=== PATIENT | male | born 1945 | race African-American/Black ===

== ENCOUNTER 2020-10-03 12:11 | Inpatient (IN) | payer OTHER ==
[~2020-10-03] VITALS: Ht 172.7 cm; Wt 76.6 kg
--- NOTE | ~2020-10-03 | O ---
[facility] [place] [address] OPERATIVE REPORT Name: JOESPH CHA Room #: 214-P ADM IN M.R.#: [id number] Admission: 10/03/20 Attend Phys: Parker Longoria MD Discharge: Date of : 45 Report #: [id number] THIS REPORT FOR: cc: Viviana Chiu MD,Viviana Olmos,Odin Cazares MD ~ CC: Parker Chiu DATE OF SERVICE: 10/09/2020 PREOPERATIVE DIAGNOSIS: Large bowel obstruction. POSTOPERATIVE DIAGNOSIS: Sigmoid volvulus. OPERATION: Sigmoidectomy with colostomy. SURGEON: Odin Olmos MD ANESTHESIA: General. ESTIMATED BLOOD LOSS: Minimal. SPECIMEN: Sigmoid colon. DESCRIPTION OF PROCEDURE: After informed consent was obtained, the patient was brought to the operating room and placed supine. SCDs were placed and working, preoperative antibiotics were administered, general anesthesia was induced. The abdomen was prepped and draped in the usual sterile fashion. Midline laparotomy incision was made from approximately 5 cm above the umbilicus down to the pubis. Fascia was incised and a self-retaining retractor was placed. I visualized the sigmoid colon. It was severely dilated. It was exteriorized. It was torsed on itself causing a volvulus. I then selected a spot approximately at the level of the distal descending colon. The sigmoid colon was then stapled off with a BETO blue load stapler. The white line of Toldt was incised and a colon mobilized medially. I then ligated the mesentery very close to the bowel. This was taken down to the pelvis. Approximately 10 cm above the rectosigmoid, the colon was then transected and the specimen was removed. I made an incision in the left lower quadrant to exteriorize the proximal colon. Abdomen was copiously irrigated. The fascia was reapproximated with 0 PDS in running fashion. Skin was closed with tawnya. The colostomy was then fashioned using 4-0 Vicryl in a Dali type fashion. A colostomy appliance was placed. Sterile dressings were applied. COMPLICATIONS: None. [facility] [address] [place] [address] OPERATIVE REPORT Name: JOESPH CHA Room #: 214-P [facility] IN ..#: [id number] Admission: 10/03/20 Attend Phys: Parker Longoria MD Discharge: Date of : 45 Report #: [id number] DISPOSITION: The patient was taken to recovery in satisfactory condition. By: 20 48 Odin Olmos MD /nt
[2020-10-03 12:12] VITALS: BP 173/86
[2020-10-03] MEDS ORDERED: VANCOMYCIN HCL125 MG PO (12:39)
[2020-10-03] MEDS ORDERED: LISINOPRIL40 MG PO (12:39)
[2020-10-03] MEDS ORDERED: METOPROLOL SUCC50 MG PO (12:39)
[2020-10-03] MEDS ORDERED: METRONIDAZOLE500 M4 PO (12:40)
[2020-10-03] MEDS ORDERED: SPIRONOLACTONE25 MG PO (12:40)
[2020-10-03] MEDS ORDERED: SPIRIVA18 MCG INH (12:41)
[2020-10-03] MEDS ORDERED: AMARYL2 MG PO (12:41)
[2020-10-03] MEDS ORDERED: CHLORTHALIDONE25 MG PO (12:41)
[2020-10-03] MEDS ORDERED: ELIQUIS5 MG PO (12:42)
[2020-10-03] MEDS ORDERED: K-DUR 20 MEQ T20 MEQ PO (12:42)
[2020-10-03 12:58] LABS: ABSOLUTE NEUTROPHILS 6.4 thou/uL (1.4-8.2); BASOPHILS 0.5 % (0.0-2.0); EOSINOPHILS 0.4 % (0.0-3.0); HEMATOCRIT 29.5 % (42.0-52.0); HEMOGLOBIN 9.5 gm/dL (14.0-18.0); LYMPHOCYTES 7.1 % (24.0-44.0); MCH 28.4 pg (26.0-34.0); MCHC 32.1 g/dL (28.0-37.0); MCV 88.4 fL (80.0-100.0); PLATELET COUNT 272 thou/uL (150-400); RBC 3.34 mil/uL (4.50-6.00); RDW 17.7 % (10.5-14.5); WBC 7.5 thou/uL (4.0-11.0)
[2020-10-03 13:10] LABS: URINE BILIRUBIN NEGATIVE (Negative); URINE BLOOD 1+ (Negative); URINE CLARITY CLEAR; URINE COLOR YELLOW; URINE GLUCOSE-RANDOM* 3+ (Negative); URINE KETONES NEGATIVE (Negative); URINE LEUKOCYTES-REFLEX NEGATIVE (Negative); URINE NITRITE-REFLEX NEGATIVE (Negative); URINE PROTEIN (DIPSTICK) 2+ (Negative); URINE SPECIFIC GRAVITY 1.015 (1.005-1.035); URINE UROBILINOGEN 0.2 E.U./dl (0.2-1.0)
[2020-10-03 13:17] LABS: CREATININE 3.7 mg/dL (0.7-1.3); DIRECT BILIRUBIN 0.1 mg/dL (<0.1-0.2); TOTAL BILIRUBIN 0.3 mg/dL (0.2-1.0); TOTAL PROTEIN 6.8 g/dL (6.4-8.2); TROPONIN-I 0.19 ng/mL (<0.06)
[2020-10-03 13:25] LABS: POTASSIUM 2.1 mmol/L (3.5-5.1)
[2020-10-03 13:28] LABS: CALCIUM 8.9 mg/dL (8.5-10.1)
[2020-10-03 13:31] LABS: CASTS None Seen /LPF (None Seen); SQUAMOUS 0-3 Few /LPF (0-3)
[2020-10-03 13:32] LABS: BACTERIA-REFLEX None Seen /HPF (None Seen); CRYSTALS None Seen /LPF (None Seen); URINE RBC 0-2 Rare /HPF (0-2); URINE WBC-REFLEX 0-5 Rare /HPF (0-5)
--- NOTE | 2020-10-03 13:57 | EKG ---
[facility] [place] [address] [place] [address] ELECTROCARDIOGRAM REPORT Name: JOESPH CHA Room #: [facility]#: [id number] Admission: 10/03/20 Attend Phys: Discharge: Date of : 45 Report #: [id number] THIS REPORT FOR: cc: Viviana Chiu MD, Karla L. MD Santiago, Patrick MD [facility] ~ THIS REPORT FOR: //name// [facility] ED Test Date: 2020-10-03 Test Time: 13:39:01 Pat Name: JOESPH CHA Department: Room: Gender: Tub Operator: [facility] 1945 Requested By: Donnell Lomas Order Number: [id number] MD: Ari Kirby Measurements Intervals Welches Rate: 59 P: 34 NE: 204 QRS: -19 QRSD: 148 T: 268 QT: 561 QTc: 556 Interpretive Statements Sinus rhythm Atrial premature complexes Right bundle branch block Baseline wander in lead(s) II No previous ECG available for comparison Electronically Signed On 10-03-2020 13:57:13 TENTERING MACHINE OFF BEARER by Ari Kirby [email or web address] <ELECTRONICALLY SIGNED> By: Ari Kirby MD, FACC 10/03/20 1357 1339 1339 Ari Kirby MD, FAC /EPI
--- NOTE | 2020-10-03 16:48 | NUR ---
THIS MEDICAL OFFICE ASST PAGES DR HEAD R/T CRITICAL GLUSOCE. SONIDO REPORTS HE HAS PLACED SOME ORDERS BUT GIVES T/O FOR 1000 ML NS WIDE OPEN ONCE
[2020-10-03 20:15] VITALS: BP 144/66
[2020-10-03 20:30] VITALS: BP 165/73
[2020-10-03 20:42] LABS: MAGNESIUM 1.7 mg/dL (1.8-2.4); PHOSPHORUS 1.9 mg/dL (2.5-4.9)
[2020-10-03 20:48] VITALS: BP 161/58
[2020-10-03 23:20] VITALS: BP 150/68
[2020-10-04 00:59] LABS: CALCIUM 8.8 mg/dL (8.5-10.1); CREATININE 3.3 mg/dL (0.7-1.3)
[2020-10-04 01:15] LABS: POTASSIUM 1.7 mmol/L (3.5-5.1)
--- NOTE | 2020-10-04 02:33 | NUR ---
PATIENT TRANSFERRED FROM ED AT APPROXIMATELY 2100. PATIENT UNABLE TO ANSWER ADMISSION QUESTIONS APPROPRIATELY SO CONTACTED TO HELP COMPLETE ADMISSION. PATIENT CONTINUES ON INSULIN DRIP WITH Q1H BG CHECKS.
[2020-10-04 04:45] VITALS: BP 139/79
[2020-10-04 06:06] LABS: HEMOGLOBIN 9.9 gm/dL (14.0-18.0); MCH 28.1 pg (26.0-34.0); MCHC 31.8 g/dL (28.0-37.0); MCV 88.3 fL (80.0-100.0); RBC 3.51 mil/uL (4.50-6.00); RDW 17.5 % (10.5-14.5)
[2020-10-04 06:19] LABS: CALCIUM 9.3 mg/dL (8.5-10.1)
[2020-10-04 06:38] LABS: POTASSIUM 2.2 mmol/L (3.5-5.1)
[2020-10-04 08:00] VITALS: BP 147/80
[2020-10-04 11:02] VITALS: BP 147/80
--- NOTE | 2020-10-04 11:03 | NUR ---
Chart reviewed and case discussed with the care team. Pt admitted from home where he lives with his . He was on service with [facility] prior to admission for RN,PT/OT services. He has rwalker and was getting around the house until increased weakness/falls this week. [facility] is aware of his admission and can accept him back on service at or. His is his primary contact. Will ask for therapy evals as appropriate. The pt is noted to be cdiff positive a month ago at [facility]. Will follow.
[2020-10-04 11:30] VITALS: BP 149/79
[2020-10-04 16:30] VITALS: BP 166/79
--- NOTE | 2020-10-04 17:29 | NUR ---
I have reviewed the documentation by LUIS BRIONES from 10/04/20 to 10/04/20 and I concur with it. JARVIS IRVIN, PT, DPT
[2020-10-04 20:45] VITALS: BP 152/77
[2020-10-05 00:30] VITALS: BP 153/55
[2020-10-05 01:06] LABS: GLYCOHEMOGLOBIN (HGB A1C) 9.5 % (4.8-5.6)
[2020-10-05 04:45] VITALS: BP 170/79
[2020-10-05 05:26] LABS: HEMATOCRIT 28.2 % (42.0-52.0); HEMOGLOBIN 9.2 gm/dL (14.0-18.0); MCH 28.9 pg (26.0-34.0); MCHC 32.6 g/dL (28.0-37.0); MCV 88.8 fL (80.0-100.0); RBC 3.18 mil/uL (4.50-6.00); RDW 17.7 % (10.5-14.5); WBC 7.1 thou/uL (4.0-11.0)
[2020-10-05 06:17] LABS: ALBUMIN 1.8 g/dL (3.4-5.0); CALCIUM 8.6 mg/dL (8.5-10.1); CREATININE 2.9 mg/dL (0.7-1.3); MAGNESIUM 1.7 mg/dL (1.8-2.4); PHOSPHORUS 3.2 mg/dL (2.5-4.9)
[2020-10-05 06:21] LABS: POTASSIUM 2.6 mmol/L (3.5-5.1)
[2020-10-05 07:40] VITALS: BP 160/56
--- NOTE | 2020-10-05 08:18 | NUR ---
PT WITH NG CLAMPED, CONDOM CATHETER WITH YELLOW URINE OUTPUT, FECAL MNGMENT SYSTEM WITH LIQUID BROWN STOOL, ASSISTS WITH TURNS IN BED, NO C/O PAIN OR N/V, NPO FOR COLONOSCOPY THIS AM, IV FLUIDS INFUSING L AC, WILL CON'T TO MONITOR PER PPOC.
--- NOTE | 2020-10-05 09:31 | HC ---
[facility] [place] [address] CONSULTATION Name: JOESPH CHA Room #: 214-P [facility] IN M.R.#: [id number] Admission: 10/03/20 Attend Phys: Parker Longoria MD Discharge: Date of : 45 Report #: [id number] THIS REPORT FOR: cc: Viviana Chiu MD, Karla L. MD Al-Mubaslat, Ahmad MD ~ DATE OF SERVICE: 10/04/2020 ENDOCRINE CONSULTATION NOTE CONSULTING PHYSICIAN: Dr. Longoria. REASON FOR CONSULTATION: Uncontrolled type 2 diabetes mellitus. HISTORY OF PRESENT ILLNESS: This is a 75-year-old male patient whose medical background is significant for hypertension, hyperlipidemia as well as newly diagnosed diabetes mellitus. The patient had a recent run in with Clostridium difficile for which he was hospitalized at [facility]. He has been experiencing progressive weakness, diminished appetite and weight loss since then. He presented to the Emergency Department primarily due to concerns over supposed hypertension. The patient notes that he was diagnosed with diabetes mellitus only a few months ago and that he has been placed on glimepiride monotherapy. When questioned about blood glucose monitoring at home, he replied that he does, but then could not specify any objective evaluation of his blood glucose pattern at home. Also, he is hypertensive and is maintained on lisinopril 40 mg daily, metoprolol 50 mg daily as well as spironolactone 25 mg daily. He believes that he is on some form of lipid-lowering therapy as well. REVIEW OF SYSTEMS: CONSTITUTIONAL: Fatigue, tiredness, weight loss, poor appetite, but no fever or chills. HEENT: Negative for sore throat, sinus pain or ear drainage. PULMONARY: Negative for shortness of breath, cough or hemoptysis. CARDIAC: Negative for chest pain, palpitations, syncope or presyncope. GASTROINTESTINAL: Noted for recent issues with Clostridium difficile and diarrhea, but no abdominal pain, nausea, vomiting. CARDIOLOGY: Negative for chest pain, palpitations, syncope or presyncope. Otherwise, review of systems noncontributory other than those mentioned in HPI. PAST MEDICAL HISTORY: 1. Hypertension. [facility] [address] [facility] [place] [address] CONSULTATION Name: JOESPH CHA Room #: 214-P [facility] IN ..#: [id number] Admission: 10/03/20 Attend Phys: Parker Longoria MD Discharge: Date of : 45 Report #: [id number] 2. Type 2 diabetes mellitus. 3. Recent Clostridium difficile. MEDICATIONS: Metoprolol 50 mg daily, lisinopril 40 mg daily, vancomycin 125 mg p.o. q.i.d., spironolactone 25 mg daily, Spiriva daily, glimepiride 2 mg daily, chlorthalidone 25 mg daily, Eliquis 5 mg b.i.d., KCl 20 mEq daily. ALLERGIES: HE IS ALLERGIC TO BACTRIM. FAMILY HISTORY: Noncontributory. SOCIAL HISTORY: Lives with his . Denies use of tobacco, alcohol or illicit drugs. PHYSICAL EXAMINATION: GENERAL: Pleasant -Gibraltarian elderly male patient who is not in apparent pain or distress. VITAL SIGNS: Blood pressure is 147/80 mmHg, heart rate is 66 beats per minute, respirations 16 per minute, temperature of 36.4 degrees Celsius. CONSTITUTIONAL: He is sitting upright in bed, appears lethargic, but not in pain or distress. HEENT: Anicteric sclerae. Intact extraocular motions. NECK: Supple, without JVD, carotid bruits or lymphadenopathy. I do not appreciate thyromegaly. CHEST: Noted for moderate entry bilaterally with scattered rales. No wheezes or crackles. HEART: Regular rate and rhythm. ABDOMEN: Soft, lax. No guarding. Active bowel sounds. EXTREMITIES: Lower extremity exam, trace ankle edema bilaterally. No skin breaks or ulcerations. NEUROLOGIC: Awake, alert and oriented to time, place and person, largely nonfocal. PSYCHIATRIC: Pleasant, interactive. Normal mood and affect. LABORATORY DATA: Blood glucose on arrival was over 500, then quickly went to as low as 59 mg/dL earlier this morning, most recently it is at 135 this morning and then 275 mg/dL before this dictation. Otherwise, sodium 155, potassium 2.6, chloride 119, CO2 of 21, anion gap 15, creatinine of 3.0, was 3.7 on arrival, AST 21, total bilirubin 0.3, calcium 9.3, phosphorus 1.9, magnesium 1.7, alkaline phosphatase 124, total protein 6.8, albumin 2.0. EGFR 25. Lactic acid 1.4. Troponin 0.19. White blood count 10, hemoglobin 9.9, hematocrit 31, platelets 289. ASSESSMENT AND PLAN: [facility] [address] [place] [address] CONSULTATION Name: JOESPH CHA Room #: 214-P [facility] IN M.R.#: [id number] Admission: 10/03/20 Attend Phys: Parker Longoria MD Discharge: Date of : 45 Report #: [id number] 1. Type 2 diabetes mellitus. As per the patient, this is a new diagnosis. I will obtain a hemoglobin A1c to get a better assessment of his overall level of control. It is not clear as to whether he had any meaningful responsiveness to glimepiride monotherapy. However, he was managed with IV insulin immediately on admission and demonstrated a quick responsiveness to it and has developed hypoglycemia several hours into it. At that time, that was discontinued, the patient was running an average insulin rate of 5 units per hour. At this point in time, I would like to initiate therapy with Lantus insulin 12 units daily starting now as well as a Humalog supplemental scale of moderate intensity. This would both give us the flexibility and ability to adjust his therapy according to changes going forward. Blood glucose monitoring will commence a.c. and at bedtime. 2. Renal insufficiency. I advanced and consistent with stage 4 kidney disease. I am hopeful that this is at least partially due to acute azotemic changes. Nephrology is following the patient closely. 3. Hypokalemia. The patient has severe hypokalemia that is currently being replaced aggressively. This is to be monitored and we will continue replacement as needed. 4. Hypertension. The patient's level of blood pressure control is adequate on the current regimen and he is to continue with the current regimen. I certainly appreciate this consultation by Dr. Longoria. <ELECTRONICALLY SIGNED> By: Lea Arguelles MD 10/05/20 0931 1127 0203 Lea Arugelles MD /nt
[2020-10-05 11:20] VITALS: BP 1060/85
--- NOTE | 2020-10-05 15:09 | NUR ---
GI LAB CALLED THEY ARE PENDING COVID RESULTS BUT STILL COMING UP TO GET HIM FRO PROCEDURE, AT BEDSIDE HE IS SLEEPING.
[2020-10-05 15:20] VITALS: BP 160/99
[2020-10-05 19:40] VITALS: BP 141/67
--- NOTE | 2020-10-05 19:48 | NUR ---
16:00 BACK ON UNIT FROM GI PROCEDURE. SLEEPY OVERALL BUT AROUSES TO CONVERSATION. WIDE AT BEDSIDE REPORT ON PROCEDURE PER EQUIPMENT OPERATOR INTERMODAL YARD-RYAN AT BEDSIDE PROVIDED WELL. DENIES ANY PAIN, WATCHING TV STABLE VS, NO CP, NO SOB. FECAL MANAGEMENT TUBE WAS CHANGED OUT IN THE GI LAB.
[2020-10-06 03:30] VITALS: BP 147/83
[2020-10-06 04:43] LABS: ALBUMIN 1.9 g/dL (3.4-5.0); CALCIUM 8.4 mg/dL (8.5-10.1); CREATININE 2.6 mg/dL (0.7-1.3); PHOSPHORUS 3.4 mg/dL (2.5-4.9)
[2020-10-06 05:01] LABS: POTASSIUM 2.7 mmol/L (3.5-5.1)
--- NOTE | 2020-10-06 08:27 | NUR ---
ASSESSMENTS CHARTED, MEDS CHARTED GIVEN. CRITICAL POTASSIUM THIS MORNING, IV MEDS ORDERED. PATIENT HAD PULLED OUT IV ACCESS DURING INTERIM, NO ACCESS COULD BE FOUND. WAITING FOR IV TEAM TO ARRIVE. PATIENT HAS BEEN NPO DURING SHIFT FOR POSSIBLE SURGERY TODAY FOR STRICTURE. FECAL MGMT SYSTEM IN PLACE AND ZAMORA IN PLACE. FALL PRECAUTIONS IN PLACE DURING SHIFT.
[2020-10-06 11:05] VITALS: BP 156/81
--- NOTE | 2020-10-06 13:16 | P ---
[facility] [place] [address] PROCEDURE REPORT Name: JOESPH CHA Room #: 214-P ADM IN M.R.#: [id number] Admission: 10/03/20 Attend Phys: Parker Longoria MD Discharge: Date of : 45 Report #: [id number] THIS REPORT FOR: cc: Viviana Chiu MD,Dano Brantley MD, MD ~ CC: Harjinder Chiu MD DATE OF SERVICE: 10/05/2020 PROCEDURE PERFORMED: Colonoscopy with decompression. HISTORY OF PRESENT ILLNESS: The patient is a 75-year-old male, who is a fairly poor historian, previous history of C. diff colitis, diarrhea for approximately 1 month. At that time at [facility], he was on Flagyl, later switched to vancomycin, but continues to have diarrhea. CT scan of the abdomen and pelvis on this admission shows findings suggesting a sigmoid colon stricture causing colonic obstruction with marked gaseous and stool distention of the colon proximal to this abrupt narrowing. A neoplastic etiology is consideration, not typical appearance of the sigmoid volvulus. A low density lesion in the right lobe of the liver concerning for hepatic metastasis. Multiple renal masses were also noted. The patient has never had a colonoscopy before. He was on a pureed diet; therefore, we placed a Dobbhoff to give him a prep last night. Plan is for colonoscopy. DESCRIPTION OF PROCEDURE: The risks and benefits of the procedure were explained to the patient and his , those risks including but not limited to bleeding, perforation and the risk of sedation. They understood these risks and gave informed consent. Propofol was given per anesthesia. Next, a digital rectal exam was initially performed, in which internal hemorrhoid was palpated, but otherwise normal. Next, using a standard Olympus colonoscope, the scope was placed in the patient's anus and advanced under direct vision into the transverse colon. There was a large amount of liquid stool throughout. The prep was poor throughout most of the colon. As I was advancing the scope through the sigmoid colon, at approximately 30 cm, there was a narrowing, no obvious stricture or mass lesion was noted. However, just beyond this was a significantly dilated sigmoid and descending colon consistent with likely a sigmoid volvulus. Large amount of liquid stool, very thick with mucus, was difficult to aspirate a lot of that way, but I was able to aspirate approximately 2 liters of liquid stool over the next 30 minutes. I was able to advance the scope what appears to be the transverse colon again. All these areas were massively dilated. There was no colitis, no mass lesions were noted. [address] [address] PROCEDURE REPORT Name: SEMAJJOESPH Room #: 214-P [facility] IN M.R.#: [id number] Admission: 10/03/20 Attend Phys: Parker Longoria MD Discharge: Date of : 45 Report #: [id number] Large amount of the area was covered with liquid stools as well, which did limit visualization. I spent a lot of time decompressing his abdomen, which was significantly improved after decompression. Once again looked at that area at 30 cm, again no obvious mass or polyp lesion was seen. This is most consistent with a sigmoid volvulus at 30 cm. No obvious diverticula were noted either. The rectal mucosa was normal. On retroflexion, internal hemorrhoid also noted. At this point, the scope was then withdrawn and the procedure terminated. The patient tolerated the procedure well. IMPRESSION: 1. Findings consistent with a sigmoid volvulus with a narrowing at 30 cm, no mass lesion was noted with significant dilation of the colon proximal to this with large amounts of liquid thick stool, aspirated approximately 2 liters away of liquid stool, also decompressed the colon significantly. 2. Internal hemorrhoids. RECOMMENDATIONS: We will consult Surgery for possible sigmoid resection. We will need to continue further workup for his liver lesion as well. Thank you for allowing me to participate in his care. <ELECTRONICALLY SIGNED> By: Dano Bourgeois MD 10/06/20 1316 1619 1127 Dano Bourgeois MD /nt
[2020-10-06 13:59] LABS: APTT 24.3 Seconds (24.5-32.8); PROTIME 10.6 Seconds (9.3-11.4)
[2020-10-06 16:45] VITALS: BP 141/74
[2020-10-06 19:20] VITALS: BP 129/67
--- NOTE | 2020-10-06 19:42 | NUR ---
ASSESSMENT CHARTED - MEDS PER JAN - K+ REPLACED ORDERED IV AND PO. ALEXANDR DIET PURREE/ CHOPPED AND NECTAR THICK LIQUIDS. ACCUCHECKS CHARTED - FECAL SYSTEM EXTERNAL CATH REMAIN INSITU. NO CO'S OF PAIN OR NAUSEA. PT HAD LIVER BIOPSY COMPLETED THIS AFTERNOON. SLEEPY POST PROCEDURE- WOKE UP FOR DINNER AND ATE WELL. INTO VISIT - SEEN BY SURGERY TODAY. NO CO'S AT THE PRESENT TIME. APPEARS TO BE COMFORTALBE.
[2020-10-07 03:30] VITALS: BP 145/75
[2020-10-07 04:43] LABS: ALBUMIN 1.7 g/dL (3.4-5.0); CALCIUM 8.4 mg/dL (8.5-10.1); CREATININE 2.7 mg/dL (0.7-1.3); PHOSPHORUS 3.4 mg/dL (2.5-4.9); POTASSIUM 3.1 mmol/L (3.5-5.1)
--- NOTE | 2020-10-07 05:41 | NUR ---
ASSESSMENTS CHARTED, MEDS CHARTED GIVEN. PATIENT RESTING IN BED DURING SHIFT. FECAL MGMT SYSTEM BALLOON REINFLATED, LEAKAGE. NEW COLLECTION BAG APPLIED. USING EXTERNAL ZAMORA WITH ONE BOUGHT OF LEAKAGE. PLAN OF CARE IS TO HAVE SURGERY EARLY NEXT WEEK.
[2020-10-07 08:28] VITALS: BP 147/81
[2020-10-07 11:44] VITALS: BP 150/87
[2020-10-07 15:50] LABS: ALBUMIN 1.8 g/dL (3.4-5.0); CREATININE 2.8 mg/dL (0.7-1.3); PHOSPHORUS 3.5 mg/dL (2.5-4.9); POTASSIUM 3.1 mmol/L (3.5-5.1)
[2020-10-07 16:57] VITALS: BP 165/90
--- NOTE | 2020-10-07 17:38 | NUR ---
ASSUMED CARE PT SHIFT CHANGE. ASSESSMENTS CHARTED.MEDS GIVEN PER JAN.PT ALERT AND ORIENTED X2, VSS. DENIES PAIN O2 SATS WNL ON 2L. FECAL TUBE REMAINS IN PLACE DRAINING APPROPRIATELY. ZAMORA REMAINS IN PLACE. PT REPOSITIONED TOLERATED. PLAN IS FOR SURGERY FRIDAY. FAMILY UPDATED AND AWARE. PT TOELRATING DIET VERY WELL. NO S/SX DIFFICULTY SWALLOWING/ASPIRATION. WILL CONT TO [facility] PT AND FOLLOW POC.
[2020-10-07 20:30] VITALS: BP 153/79
[2020-10-08] VITALS (8 sets, daily range): BP systolic 117–170; BP diastolic 70–97
--- NOTE | 2020-10-08 03:04 | NUR ---
ASSESSMENTS CHARTED, MEDS CHARTED GIVEN. RESTING IN BED DURING SHIFT. ON MAINTENANCE FLUIDS DURING SHIFT. BBB ON TELEMETRY. ON 2 LITERS NASAL CANNULA. TURNED DURING SHIFT. FECAL MANAGEMENT SYSTEM NEEDED REINFLATING AGAIN. PLAN OF CARE IS TO HAVE SURGERY ON FRIDAY. FALL PRECAUTIONS IN PLACE DURING SHIFT.
[2020-10-08 06:00] LABS: ALBUMIN 1.7 g/dL (3.4-5.0); CALCIUM 8.1 mg/dL (8.5-10.1); CREATININE 2.7 mg/dL (0.7-1.3); PHOSPHORUS 4.1 mg/dL (2.5-4.9)
[2020-10-08 06:06] LABS: POTASSIUM 2.8 mmol/L (3.5-5.1)
--- NOTE | 2020-10-08 19:35 | NUR ---
PT CARE ASSUMED AT 0700. ASSESSMENTS CHARTED. MEDICATION CHARTED. AYDE ZAMORA. FECAL MANAGEMENT SYSTEM. COLONIC STRICTURE; SURGERY IN AM. NPO; OTHERWISE MECH SOFT/ NECTAR THICK LIQUIDS. SINUS RHYTHM TO SINUS TACH.
[2020-10-09 03:58] LABS: ALBUMIN 1.8 g/dL (3.4-5.0); CALCIUM 8.6 mg/dL (8.5-10.1); CREATININE 2.6 mg/dL (0.7-1.3)
[2020-10-09 04:16] VITALS: BP 152/71
--- NOTE | 2020-10-09 05:01 | NUR ---
PT LYING IN BED. DENIES PAIN. RESTING COMFORTABLY. NO NEEDS VOICED. CALL LIGHT WITHIN REACH. FREQUENT OBSERVATION.
[2020-10-09 08:30] VITALS: BP 151/68
--- NOTE | 2020-10-09 10:33 | NUR ---
Pt TO GO FOR SIGMOIDECTOMY AND COLOSTOMY PLACEMENT TODAY. WILL NEED NEW PT ORDERS POST-OP IN ORDER TO RESUME PT INTERVENTIONS.
[2020-10-09 12:00] VITALS: BP 147/78
--- NOTE | 2020-10-09 13:56 | HC ---
[facility] [place] [address] CONSULTATION Name: JOESPH CHA Room #: 214-P ADM IN M.R.#: [id number] Admission: 10/03/20 Attend Phys: Parker Longoria MD Discharge: Date of : 45 Report #: [id number] THIS REPORT FOR: cc: Viviana Chiu MD, Karla L. MD Gates, Clinton R. MD ~ DATE OF SERVICE: 10/06/2020 REASON FOR CONSULTATION: Sigmoid volvulus. ASSESSMENT: Sigmoid volvulus. RECOMMENDATIONS: 1. Thank you for the consultation. We will follow along. 2. Recommend proceeding with sigmoidectomy this hospitalization given colonoscopy findings of sigmoid volvulus. Discussed this with the patient and he is agreeable. We will proceed with scheduling early next week. 3. Consider hepatic mass biopsy prior to surgery. HISTORY OF PRESENT ILLNESS: The patient is a pleasant 75-year-old gentleman presented to the ER with falls. The patient was found on CT scan to have a colonic obstruction. He underwent a colonoscopy and was found to have a sigmoid volvulus. General Surgery was consulted for further evaluation. He is recently diagnosed with C. diff colitis. PAST MEDICAL HISTORY: 1. Clostridium difficile colitis. 2. Diabetes mellitus. 3. Hypertension. 4. Lung cancer, status post lobectomy. 5. Deep vein thrombosis, on Eliquis. PAST SURGICAL HISTORY: 1. Lobectomy of the lung. 2. Inguinal hernia. SOCIAL HISTORY: Lives independently. Denies alcohol or tobacco use. FAMILY HISTORY: 1. Sister had leukemia. 2. Sister had breast cancer. 3. Brother had breast cancer. REVIEW OF SYSTEMS: [facility] [address] [place] [address] CONSULTATION Name: JOESPH CHA Room #: 214-P [facility] IN ..#: [id number] Admission: 10/03/20 Attend Phys: Parker Longoria MD Discharge: Date of : 45 Report #: [id number] CONSTITUTIONAL: No fever. No chills. HEENT: Denies blurring of vision, double vision, headaches, hearing loss, sinus drainage or sore throat. CARDIOVASCULAR: Denies chest pain, palpitations, orthopnea or paroxysmal nocturnal dyspnea. RESPIRATORY: Denies cough, wheezing, hemoptysis, or shortness of air. GASTROINTESTINAL: See above and below. GENITOURINARY: Denies dysuria or hematuria or kidney stones. No urinary frequency, urgency or incontinence. MUSCULOSKELETAL: See above and below. NEUROLOGICAL: Denies tremor, stroke or seizure. HEMATOLOGIC AND LYMPHATICS: See above and below. SKIN: No rash or ulceration. ENDOCRINE: No heat or cold intolerance. PSYCHIATRIC: Denies depression, anxiety, or schizophrenia. PHYSICAL EXAMINATION: VITAL SIGNS: Temperature 37, pulse 83, respiratory rate 18, blood pressure 156/81, pulse ox 99%. GENERAL: No apparent distress, alert and oriented x 3. HEENT: PERRLA, EOMI, MMM, NCAT. NECK: Supple. No LAD. CARDIOVASCULAR: Regular rhythm and rate. Hemodynamically stable. Normal capillary refill. PULMONARY: Nonlabored. Clear to auscultation bilaterally. ABDOMEN: Soft, mildly distended, no tenderness, no guarding, rebound or rigidity, no hernias appreciated. EXTREMITIES: Calves soft, nontender, no edema. SKIN: No rashes or bruises. PSYCHIATRIC: Normal mood and affect. NEUROLOGICAL: Grossly intact. Cranial nerves 2-12 grossly intact. MUSCULOSKELETAL: 5/5 strength in upper extremities and lower extremities bilaterally. LYMPHATICS: No cervical, inguinal, or supraclavicular lymphadenopathy. LABORATORY DATA: White blood count 7.1, hemoglobin 9.2, platelets 246. Sodium 151, potassium 2.7, creatinine 2.6, calcium 8.4, albumin 1.9. IMAGING: CT of the abdomen and pelvis. Impression: 1. Findings suggesting a sigmoid colon stricture causing colonic obstruction with gaseous and stool distention of the colon proximal to the abrupt narrowing and neoplastic etiology is of consideration for this appearance. It is not the typical appearance of a sigmoid volvulus. 2. Low density lesion in the right lobe of the liver concerning for hepatic [address] [address] CONSULTATION Name: JOESPH CHA T[place] Room #: 214-P ADM IN M.R.#: [id number] Admission: 10/03/20 Attend Phys: Parker Longoria MD Discharge: Date of : 45 Report #: [id number] metastasis. 3. Slightly spiculated nodule in the right lower lobe concerning for a neoplastic nodule. 4. Multiple bilateral renal masses of varying size, most suggestive of a combination of a large simple cortical cyst and hemorrhagic cortical cysts. However, renal evaluation is limited on the noncontrast exam. 5. A 3.2 cm infrarenal abdominal aortic aneurysm. <ELECTRONICALLY SIGNED> By: Kelby Nguyen MD 10/09/20 1356 1255 1130 Kelby Nguyen MD /nt
--- NOTE | 2020-10-09 16:16 | NUR ---
ASSUMED CARE AT SHIFT CHANGE, ALERT AND ORIENTED X4 AND FORGETFUL, CONFUSED AT SOMETIMES. VSS AND AFEBRILE. FAMILY NOTIFIED BY DR HEAD THAT THE PATIENT IS GOING TO SURGERY,PATIENT COMFIRMED THAT DR HUNT HAVE SPOKE WITH PATIENT. PATIENT TAKEN TO SURGERY AT 1600.
[2020-10-09 16:46] LABS: HEMATOCRIT 30.3 % (42.0-52.0); HEMOGLOBIN 9.5 gm/dL (14.0-18.0); MCH 28.3 pg (26.0-34.0); MCHC 31.3 g/dL (28.0-37.0); MCV 90.3 fL (80.0-100.0); RBC 3.35 mil/uL (4.50-6.00); RDW 17.8 % (10.5-14.5); WBC 5.6 thou/uL (4.0-11.0)
[2020-10-09 21:32] VITALS: BP 173/63
[2020-10-10 05:05] VITALS: BP 188/110
[2020-10-10 06:18] LABS: ALBUMIN 1.7 g/dL (3.4-5.0); CALCIUM 8.3 mg/dL (8.5-10.1); CREATININE 2.6 mg/dL (0.7-1.3); PHOSPHORUS 4.2 mg/dL (2.5-4.9); POTASSIUM 3.4 mmol/L (3.5-5.1)
[2020-10-10 07:30] VITALS: BP 171/87
--- NOTE | 2020-10-10 08:17 | NUR ---
PT RETURNED FROM SURG AT 2100, NO C/O PAIN AT THAT TIME, ABD INCISION COVERED WITH ABD DRESSING NEW COLOSTOMY WITH SOME BLOODY DRAINAGE, ZAMORA AND AND FECAL MANAGEMENT IN TACT, VSS PT BECAME CONFUSED, HALLUCINATING AND TRYING TO CLIMB OUT OF BED, RECEIVED ORDER FOR HALDOL AND PT RELAXED AND SLEPT QUIETLY TILL 0100 AND WAS ABLE TO ANSWER HIS NAME AND HE HAD SURG. AND WAS IN THE HOSPITAL REPOSITIONED IN BED AND CHANGED BAG ON FECAL MANAGEMENT SYSTEM, ABD DRESSING WAS SATURATED AND JUST HANGING BY ONE CORNER OF TAPE REPLACED AND TAPED WITH ABD, STILL DENIED PAIN AT THIS TIME. AM BP ELEVATED AND METOPROLOL GIVEN, STATED HIS ABDOMINAL PAIN RATED AT A 7/10 RECEIVED ORDER FOR FENTANYL AND PT ABLE TO REST QUIETLY, REPORT GIVEN TO NEXT SHIFT TO CON'T WITH PPOC.
--- NOTE | 2020-10-10 08:21 | HC ---
[facility] [place] [address] CONSULTATION Name: JOESPH CHA Room #: 214-P [facility] IN M.R.#: [id number] Admission: 10/03/20 Attend Phys: Parker Longoria MD Discharge: Date of : 45 Report #: [id number] THIS REPORT FOR: cc: Viviana Chiu MD, Karla L. MD Al-Ricky,Harjinder Arthur MD ~ REASON FOR CONSULTATION: Elevated creatinine and electrolyte imbalance. REASON FOR PRESENTATION: Abdominal pain, weakness. HISTORY OF PRESENT ILLNESS: A 75-year-old with history of diabetes mellitus, who was hospitalized at another facility about a month ago and was told he has Clostridium difficile. He presented with abdominal pain, occasional constipation alternating with diarrhea. He reported to significant loss of appetite and weight loss. Upon arrival to the Emergency Room, the patient was found to be in acute kidney injury with hypernatremia and hypokalemia mandating Nephrology consultation. CT of the abdomen revealed significant colonic obstruction with what seems to be a sigmoid mass. The patient reports no urinary symptoms. He is not really sure about his baseline kidney function. No nonsteroidal anti-inflammatory medication usage. Also, present on arrival, a significantly elevated blood sugar. Endocrinology was consulted to evaluate the patient. PAST MEDICAL HISTORY: 1. Hypertension. 2. Diabetes mellitus. 3. Recent Clostridium difficile. MEDICATIONS: 1. Lisinopril. 2. Metoprolol. 3. Spironolactone. 4. Glimepiride. 5. Chlorthalidone. SOCIAL HISTORY: Denies drug or alcohol abuse. ALLERGIES: SULFA. REVIEW OF SYSTEMS: GENERAL: Significant for weakness and repeated falls. PULMONARY: No cough or hemoptysis. GASTROINTESTINAL: As per the history of present illness. GENITOURINARY: No frequency or urgency. SKIN: No rash or ulcerations. [facility] [address] [place] [address] CONSULTATION Name: JOESPH CHA Tatum Room #: 214-P [facility] IN [facility]#: [id number] Admission: 10/03/20 Attend Phys: Parker Longoria MD Discharge: Date of : 45 Report #: [id number] NEUROLOGICAL: Significant for weakness and lethargy. Repeated falls. FAMILY HISTORY: Significant for diabetes mellitus. PHYSICAL EXAMINATION: GENERAL: He is alert, oriented, in no apparent distress. VITAL SIGNS: Temperature is 36.9, pulse rate is 76, respiratory rate is 20, blood pressure 160/56. HEAD AND NECK: No jugular venous distention. CHEST: No crackles. CARDIOVASCULAR: No rub detected. ABDOMEN: Severely distended. EXTREMITIES: Lower extremities, no edema. LABORATORY DATA: Hemoglobin 9.2, platelets 246. Sodium is down to 150 from 155, potassium is still low at 2.6, BUN is 38, creatinine is down to 2.9 from 3.7. IMPRESSION AND PLAN: 1. Acute kidney injury with severe water free deficit due to dehydration, third spacing because of his chronic obstruction. 2. Hyperkalemia. 3. Hyponatremia. 4. Colonic obstruction with what seems to be a sigmoid mass. 5. Appropriate acute kidney injury workup will be initiated. 6. Reformulate the IV fluid to address his potassium, hyponatremia. 7. Renal function is improving and he is expected to continue to have significant improvement in his renal function back to his baseline. 8. Continue to avoid nephrotoxins. 9. Monitor electrolytes. 10. We will continue to follow. <ELECTRONICALLY SIGNED> By: Harjinder Andrade MD 10/10/20 0821 0837 [id number] Harjinder Andrade MD /nt
[2020-10-10 12:00] VITALS: BP 159/70
[2020-10-10 13:50] LABS: URINE BILIRUBIN NEGATIVE (Negative); URINE BLOOD 1+ (Negative); URINE CLARITY CLEAR; URINE COLOR YELLOW; URINE GLUCOSE-RANDOM* TRACE (Negative); URINE KETONES NEGATIVE (Negative); URINE LEUKOCYTES-REFLEX NEGATIVE (Negative); URINE PROTEIN (DIPSTICK) 2+ (Negative); URINE UROBILINOGEN 0.2 E.U./dl (0.2-1.0)
[2020-10-10 13:51] LABS: URINE NITRITE-REFLEX POSITIVE (Negative)
[2020-10-10 14:01] LABS: BACTERIA-REFLEX >30 Many /HPF (None Seen); SQUAMOUS 4-10 Moderate /LPF (0-3)
[2020-10-10 14:02] LABS: URINE RBC 3-10 Few /HPF (0-2); URINE WBC-REFLEX 0-5 Rare /HPF (0-5)
[2020-10-10 14:03] LABS: AMORPHOUS URATES Moderate /LPF (None Seen); HYALINE CASTS 0-3 Few /LPF (None Seen)
--- NOTE | 2020-10-10 15:49 | NUR ---
SPOKE WITH PATIENT WHO WAS NOT FORCOMING WITH INFORMATION. SP WITH WHO IS IMMUNE SUPPRESSED. SHE REPORTS SHE WILL NEED HOME HEALTH AT HOME SHE NEEDS MORE ASSISTANCE. DISCUSSED THE NURSING AND THERAPIST COMING TO THE HOME ARE HOME HEALTH PROVIDED BY INSURANCE. DISCUSSED PATIENT TO WORK WITH THERAPY BUT MAY NEED POST ACUTE CARE. WANTS PATIENT TO RETURN HOME. [facility] FOLLOWING.
[2020-10-10 17:00] VITALS: BP 171/95
--- NOTE | 2020-10-10 17:02 | NUR ---
FAXED CLINICAL UPDATE TO [facility] SPOKE WITH ILANA IN INTAKE SHE RECEIVED UPDATE AND WILL FOLLOW.
[2020-10-10 19:50] VITALS: BP 182/89
[2020-10-11] VITALS: BP 161/101
[2020-10-11 05:08] LABS: ALBUMIN 1.9 g/dL (3.4-5.0); CALCIUM 8.9 mg/dL (8.5-10.1); CREATININE 2.5 mg/dL (0.7-1.3); PHOSPHORUS 3.8 mg/dL (2.5-4.9); POTASSIUM 3.3 mmol/L (3.5-5.1)
[2020-10-11 05:12] VITALS: BP 172/90
--- NOTE | 2020-10-11 07:59 | NUR ---
ASSUMED CARE OF THE PATIENT AT 1900; SR/ST ON THE MONITOR WITH ONETIME LOPRESSOR FOR ELEVATED HEART RATE GIVEN; ON BEDREST AND NPO; ALERT AND ORIENTED/ CONFUSED AT TIMES; C/O OF ABDO PAIN MANAGED WITH PRN PAIN MEDICATIONS AND INTERMITTENT NAUSEA MANAGED WITH ANTI-EMETICS; [id number] THROUGHOUT THE NOC; COLOSTOMY BAG IN PLACE WITH SEROSANGUINEOUS DRAINAGE AND BURPED PRN; PLAN IS TO CONTINUE TO MONITOR COLOSTOMY SITE AND MANAGE BLOOD GLUCOSE; PATIENT IS PROGRESSING SLOWLY TOWARD DISCHARGE GOALS.
--- NOTE | 2020-10-11 12:07 | PATH ---
[facility] [address] [address] PATHOLOGY RPT PROCEDURE Name: JOESPH CHA Room #: 214-P ADM IN M.R.#: [id number] Admission: 10/03/20 Date of : 45 Discharge: Report #: [id number] Path Case #: [id number] [facility] Accession Number: [id number] . 01 Material submitted: . liver - RIGHT LIVER BIOPSY. Modifiers: right . 02 Diagnosis: Liver, needle core biopsy: - METASTATIC ADENOCARCINOMA, COMPATIBLE WITH LUNG ORIGIN, SEE COMMENT. 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 02 Comment: Examination shows a gland forming malignancy associated with abundant necrosis. Dirty necrosis suggestive of colon origin is not identified. Multiple properly controlled immunohistochemical stains are performed on block A1. The tumor shows strong nuclear reactivity with TTF-1, granular reactivity with Napsin A, and membranous reactivity with CK19 as well as CK7. The tumor is nonreactive to PAX 8, CDX2, CK20 and PSA. The nonreactive immunohistochemical stains argue against lower gastrointestinal, possible renal, as well as prostatic origins. . A parts counter representative H and E slide was co-reviewed by Dr. Doris Sparks who concurs with my diagnosis. Findings of this case are conveyed to Dr. Kelby Nguyen at approximately 12:09 p.m. on 10/10/2020. . 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 02 Electronically signed: . Hoda Kinsey MD, Pathologist NPI- [id number] . 01 Gross description: . Received in formalin labeled "Joesph Cha, right liver lobe mass" are multiple santamaria-red cylindrical soft tissue cores measuring 2.7 x 0.3 x 0.1 cm in aggregate. The specimen is submitted entirely in cassettes A1-A3. [place] [place] 10[place]08/2020[place] [facility] 10/08/2020 1039 Local . 02 Pathologist provided ICD-10: C78.7 . 02 CPT . 912619, H69367, I77434 Specimen Comment: A courtesy copy of this report has been sent to [phone] [address] PATHOLOGY RPT PROCEDURE Name: JOESPH CHA Room #: 214-P ADM IN M.R.#: [id number] Admission: 10/03/20 Date of : 45 Discharge: Report #: [id number] Path Case #: [id number] Specimen Comment: [phone], Specimen Comment: Report sent to ,DR HEAD / DR CHENEY Specimen Comment: A duplicate report has been generated due to demographic updates. Performed at: [address] [facility] [address], [place], [place] [id number] MD Rock Grande MD Phone: [phone] Performed at: [address] [facility] [address] [id number] MD Hoda Kinsey MD Phone: [phone]
--- NOTE | 2020-10-11 15:01 | NUR ---
PT ON SERVICE WITH [facility] PRIOR TO ADM FAXED CLINICAL UPDATE TO [facility] SPOKE WITH [facility] IN INTAKE SHE WILL RESUME CARE AT DISCHARGE.
--- NOTE | 2020-10-11 15:13 | NUR ---
Patient very weak Dr Hoang sp with . She is interested in 5N rehab. 5N negind and reports patient unable to tolerate acute rehab. Discussed with . Alerted will see in next 24/48 hours as he is not eating well. At this time not a candidate for acute rehab. Option of skilled that is not initially wanting at this time.
[2020-10-11 16:45] VITALS: BP 148/96
--- NOTE | 2020-10-11 17:06 | PATH ---
[facility] [address] [address] PATHOLOGY RPT PROCEDURE Name: JOESPH CHA Tatum Room #: 214-P ADM IN M.R.#: [id number] Admission: 10/03/20 Date of : 45 Discharge: Report #: [id number] Path Case #: [id number] [facility] Accession Number: [id number] . 01 Material submitted: . sigmoid colon - SIGMOID COLON . 01 Clinician provided ICD-10: K56.2 . 02 Diagnosis: Large intestine, sigmoid colon, sigmoid resection: - Markedly flattened/thinned large intestinal wall associated with marked congestion, history of volvulus. - Negative for dysplasia or malignancy. - Overlying mucosa showing nonspecific reactive changes without any acute inflammation. - Margins of resection viable and unremarkable. . (IUV:mml; 10/11/2020) [facility] 10/11/2020 1638 Local . 02 Electronically signed: . Hoda Kinsey MD, Pathologist NPI- [id number] . 01 Gross description: . The specimen is received in formalin, labeled "Joesph Cha sigmoid colon". Received is an unoriented segment of colon measuring 48.3 cm in length and ranges in diameter from 5.3 to 10.2 cm. Both margins are stapled closed. The serosal surface is pink-butler to pink-santamaria and glistening in appearance. The attached pericolic fat measures 1.0 cm in thickness. The specimen is opened along the antimesenteric line to reveal light santamaria, predominately flattened mucosa with no grossly distinct nodules or lesions. There is a slight amount of normal architectural folding. Dissection and palpation of the attached pericolic fat reveals no readily identifiable lymph nodes. The specimen is submitted representatively as follows: . A1-A2 both margins A3-A5 benefits representative cross-sections of mucosa. ([facility]; 10/10/2020) [facility] 10/10/2020 1332 Local . 02 Pathologist provided ICD-10: K56.2 . [address] [address] PATHOLOGY RPT PROCEDURE Name: JOESPH CHA Room #: 214-P [facility] IN M.R.#: [id number] Admission: 10/03/20 Date of : 45 Discharge: Report #: [id number] Path Case #: [id number] [facility] . [id number] Specimen Comment: A courtesy copy of this report has been sent to [phone] Specimen Comment: Report sent to Performed at: [address] [facility] [address], [place], [place] [id number] MD Rock Grande MD Phone: [phone] Performed at: [address] [facility] [id number] MD Hoda Kinsey MD Phone: [phone]
[2020-10-11 19:32] VITALS: BP 123/71
[2020-10-11 19:33] VITALS: BP 123/71
[2020-10-12] VITALS (10 sets, daily range): BP systolic 95–176; BP diastolic 52–84
--- NOTE | 2020-10-12 04:43 | NUR ---
PT IS ALERT AND ORIENTED X3. SLEEPY COMPLAINS OF ABDOMINAL PAIN RATES A 7. PAIN MEDS GIVEN FOR COMFORT. LUNGS ARE CLEAR ON 2LITERS NASAL CANULA. PT HAS A NG TUBE DRAIING GREEN BILE CONTENTS UP TO SUCTION INTERMITENTLY. COLOTOMY BAG IN PLACE WITH BROWN STOOL PRESENT. HAS A CONDOM CATH ON NO URINE OUTPUT NOTED WILL STRAIGHT CATH. SINUS RHTYTHM ON THE MONITOR. CALL LIGHT WITHIN REACH IF NEEDS ASSISTANCE PER CATA
[2020-10-12 05:34] LABS: HEMATOCRIT 26.4 % (42.0-52.0); HEMOGLOBIN 8.4 gm/dL (14.0-18.0); MCH 28.2 pg (26.0-34.0); MCHC 31.8 g/dL (28.0-37.0); MCV 88.9 fL (80.0-100.0); RBC 2.96 mil/uL (4.50-6.00); RDW 17.8 % (10.5-14.5); WBC 11.9 thou/uL (4.0-11.0)
[2020-10-12 05:52] LABS: ALBUMIN 1.4 g/dL (3.4-5.0); CALCIUM 8.2 mg/dL (8.5-10.1); CREATININE 3.1 mg/dL (0.7-1.3); MAGNESIUM 1.9 mg/dL (1.8-2.4); PHOSPHORUS 5.6 mg/dL (2.5-4.9); POTASSIUM 3.7 mmol/L (3.5-5.1)
--- NOTE | 2020-10-12 09:16 | NUR ---
[facility]ERAP[facility] WILL BE PLACED ON HOLD FOR NOW UNTIL CLEARED FOR PO INTAKE.
--- NOTE | 2020-10-12 15:55 | NUR ---
PT VERY LETHARGIC AND RESTLESS THIS SHIFT. PRN PAIN MED GIVEN WITH PARTIAL RELIEF. SEEN BY DR. STROUD. ORDERS GIVEN TO CLAMP NG TUBE AND CHECK RESIDUAL. UPDATED ON PT'S PROGRESS. ST ON TELE.
--- NOTE | 2020-10-12 16:24 | NUR ---
Followup visit made with pt/ at bedside regarding dc planning needs. upset that the pt does not qualify for acute rehab and snf has been recommended. Pt condition declined today. Emotional support provided. Pt with NG for decompression and lots of outpt. Pt is lethargic and NPO. The attending was paged and came to visit with the pt's at bedside. He reviewed his recent bx results (adenoCA likely mets from lung) and plan of care. Dc planning efforts on hold at this time. Onc consult pending along with surgery. Will follow.
[2020-10-13 03:30] VITALS: BP 151/76
--- NOTE | 2020-10-13 03:49 | NUR ---
PT IS DROWSY YESTERDAY THEY DISCUSS HOSPICE WITH THE I WAS TOLD. PT OUT OF IT. GRABS SIDE RAILS WITH CARE. COMPLAINS OF ABDOMEN PAIN CAR OPEN TO CAR. DRESSING DRY AND INTACT. COLOSTOMY BAG JELLY YELLOW DRAINAGE NOTED. RATES PAIN A 7 PAIN MEDS GIVEN FOR ABDOMEN PAIN. ONGOING NURSING CARE PLAN DIRECTED FOR CARING FOR PT AT THIS TIME/.
[2020-10-13 06:44] LABS: ALBUMIN 1.6 g/dL (3.4-5.0); CREATININE 3.2 mg/dL (0.7-1.3); POTASSIUM 3.4 mmol/L (3.5-5.1)
[2020-10-13 07:45] VITALS: BP 154/81
[2020-10-13 09:25] LABS: % SATURATION 19 % (20-39); IRON 11 ug/dL (65-175); TIBC 58 ug/dL (250-450)
--- NOTE | 2020-10-13 10:59 | EKG ---
[facility] [place] [address] [place] [address] ELECTROCARDIOGRAM REPORT Name: JOESPH CHA Room #: 214-P ADM IN M.R.#: [id number] Admission: 10/03/20 Attend Phys: Parker Longoria MD Discharge: Date of : 45 Report #: [id number] THIS REPORT FOR: cc: Viviana Chiu MD, Karla L. MD Santiago, Patrick MD [facility] ~ THIS REPORT FOR: //name// [facility] Test Date: 2020-10-13 Test Time: 09:04:12 Pat Name: JOESPH CHA Department: Room: 214 P Gender: M Staff Development Coordinator Rn: RACHELL : 1945 Requested By: Benjamin Hoang Order Number: [id number] MD: Ari Kirby Measurements Intervals [place] Rate: 122 P: 49 WI: 167 QRS: 88 QRSD: 102 T: 7 QT: 324 QTc: 462 Interpretive Statements Sinus tachycardia Atrial premature complexes Low voltage, precordial leads Consider right ventricular hypertrophy Nonspecific T abnrm, anterolateral leads Compared to ECG 10/03/2020 13:39:01 Low QRS voltage now present Sinus rhythm no longer present Electronically Signed On 10-13-2020 10:58:57 COMPLIANCE SPECIALIST by Ari Kirby [email or web address] <ELECTRONICALLY SIGNED> By: Ari Kirby MD, FACC 10/13/20 1058 3 3 Ari Kirby MD, [facility] /EPI
[2020-10-13 11:45] VITALS: BP 135/74
--- NOTE | 2020-10-13 15:16 | NUR ---
Supportive visit provided to pt/ at bedside. indicates she has updated both his children and hers about his grave condition. She is interested in options for hospice care does not feel he is comfortable. Pt restless during my visit. Nursing updated. Attending contacted for hospice eval order. Referral faxed and [facility]. The pt's does not feel she or the kids can manage his 24hr care needs in the home and he is progressing. They are discussing his code status and do not want him intubated. His kids may want one round of cpr. Will ask the hospice liason to involve the children in discussion of his condition during their eval. Emotional support provided. Pt is unable to participate in his care decisions. Will follow.
[2020-10-13 16:20] VITALS: BP 146/66
[2020-10-13 20:15] VITALS: BP 169/96
--- NOTE | 2020-10-13 21:50 | NUR ---
RECEIVED PT'S CARE AROUND 729; PT. RESTLESS; ST ON THE MONITOR; DURING AM ASSESSMENT ALERT TO PERSON; ANSWER YES WHEN ASKED IF HAVE PAIN; PRN PAIN MEDICATION GIVEN; D/C ORDERS ON PLACED; PHYSICIAN NOTIFIED OF PT HEALTH STATUS; STFito SAMANO; WILL DISSCUSS HOSPICE CARE WITH PT'S SPOUSE; CODE CHANGED TO CPR NO INTUBATION; EVALUATION FOR HOSPICE; SPOUSE EDUCATED ABOUT [facility]; [facility] WANTS TO [facility] PT. PARTIAL CODE UNTIL TOMORROW; SALVAGE DETERMINER UNDERSTANDING; PER Sazneo PT. LUE SHOWED BLOOD CLOTS; PHYSICIAN NOTIFIED; NO NEW ORDERS; DURING THE EVENING NOTICED BY SPOUSE SWEELING OVER R. EYE; MONITORING; PASSED ON REPORT; PER DR. HUNT OK D/C NG TUBE; RESIDUAL DURING AM 40 ML; DURING PM 10 ML; NG TUBE D/C; PASSED ON REPORT; ST ON THE MONITOR; PHYSICIAM AWARE; ASSESSMENT CHARGED; FOLLOWING POC; PASSED ON REPORT;
[2020-10-14 00:55] VITALS: BP 152/60
[2020-10-14 01:05] VITALS: BP 146/98
--- NOTE | 2020-10-14 03:13 | NUR ---
PT CARE ASSUMED WITH PT IN BED.PT IS RESTLESS AND DOES RESPOND OR ANSWER QUESTIONS.PT IS CPR WITH NO INTUBATION .PT IS NPO .ABDOMINAL MIDLINE INCISION WOUND DRESSING DONE AND COLOSTOMY BAG CHANGED.PT IS BED AND TOTAL DEPENDENT.PT IS INCONTINENT TO BLADDER.PT IS ON DILAUDID FOR PAIN MANAGEMENT.MOUTH CARE DONE AND PT TURNS FROM SIDE TO SIDE.PT IV ACCESS ON THE RIGHT CHEST(CHEST PORT).WILL CONTINUE TO MONITOR
[2020-10-14 04:54] VITALS: BP 177/90
[2020-10-14 05:04] LABS: ALBUMIN 1.7 g/dL (3.4-5.0); CALCIUM 8.6 mg/dL (8.5-10.1); CREATININE 3.1 mg/dL (0.7-1.3); PHOSPHORUS 3.5 mg/dL (2.5-4.9); POTASSIUM 3.6 mmol/L (3.5-5.1)
[2020-10-14 07:35] VITALS: BP 105/50
[2020-10-14 16:10] VITALS: BP 96/53
--- NOTE | 2020-10-14 16:38 | NUR ---
RECEIVED PT'S CARE AROUND 0720; PT. ON BED; RESTELLS; ST ON THE MONITOR; AWAKE; PRN PAIN MEDICATION GIVEN BY PM NIGHT; RE-ASSESSMENT PT. MORE COMFORTABLE; PT'S SPOUSE UPDATED OVER THE PHONE OF PT. STATUS; ST. UNDERSTANDING; DURING THE MORNING PT'S AT THE BED SIDE; REQUESTED COMFORT CARE; PHYSICIAN NOTIFIED; ORDERS ON PLACED; PRN MEDICATION GIVEN; RE-ASSESSMENT PT. RESTING; SR ON THE MONITOR; [facility] ROOM AVAILABLE; PHYSICIAN NOTIFIED; PT'S NOTIFIED; ST. UNDERSTANDING; ASSESSMENT CHARGED; FOLLOWING POC; PASSED ON REPORT TO KENDAL R[facility] FROM [facility]; WILL WORK ON D/C;
== END 2020-10-14 17:12 | disposition hospice, home (50) | DRG 329 ==
LOC: ER 12:11 → EROBS 14:34 → 2N 14:34
PROVIDERS: Anesthesiology; Emergency Medicine; Hospitalist; Internal Medicine; Internal Medicine Hematology & Oncology; Internal Medicine Nephrology; Nurse Practitioner Family; Radiology Diagnostic Radiology; Specialist; Surgery; ADMIT Hospitalist; ATTEND Hospitalist
DX: K56.2 Volvulus (principal); E43 Unspecified severe protein-calorie malnutrition; G92 Toxic encephalopathy; J96.01 Acute respiratory failure with hypoxia; E87.0 Hyperosmolality and hypernatremia; N17.9 Acute kidney failure, unspecified; C78.7 Secondary malignant neoplasm of liver and intrahepatic bile duct; C34.90 Malignant neoplasm of unspecified part of unspecified bronchus or lung; A04.72 Enterocolitis due to Clostridium difficile, not specified as recurrent; K56.609 Unspecified intestinal obstruction, unspecified as to partial versus complete obstruction; I10 Essential (primary) hypertension; E87.6 Hypokalemia; E86.0 Dehydration; I71.4 Abdominal aortic aneurysm, without rupture; R63.4 Abnormal weight loss; K56.699 Other intestinal obstruction unspecified as to partial versus complete obstruction; G47.00 Insomnia, unspecified; K76.9 Liver disease, unspecified; G47.33 Obstructive sleep apnea (adult) (pediatric); D64.9 Anemia, unspecified; J44.9 Chronic obstructive pulmonary disease, unspecified; Z20.828 Contact with and (suspected) exposure to other viral communicable diseases; N40.0 Benign prostatic hyperplasia without lower urinary tract symptoms; E11.65 Type 2 diabetes mellitus with hyperglycemia; M16.12 Unilateral primary osteoarthritis, left hip; Z96.642 Presence of left artificial hip joint; Z79.899 Other long term (current) drug therapy; Z88.8 Allergy status to other drugs, medicaments and biological substances; Z88.2 Allergy status to sulfonamides; Z80.3 Family history of malignant neoplasm of breast; Z79.01 Long term (current) use of anticoagulants; Z86.718 Personal history of other venous thrombosis and embolism; Z68.25 Body mass index [BMI] 25.0-25.9, adult; Z51.5 Encounter for palliative care
CPT/HCPCS: 10081; 50010; 50093; 50101; 50386; 50445; 51412; 51708; 51712; 56525; 56526; 56527; 57092; 57103; 62110; 62900; 70005